=== PATIENT | male | born 1985 | race African-American/Black ===

== ENCOUNTER 2017-03-31 22:00 | Inpatient (IN) | payer OTHER ==
[~2017-03-31] VITALS: Ht 180.3 cm; Wt 77.1 kg
--- NOTE | ~2017-03-31 | HP ---
Unit #: [id number] #: [id number] Patient: BECCA CARMONA [id number] [place] [address] [id number] I MR#: [id number] NAME: BECCA CARMONA ROOM: P186 Age: 31 Sex: M Admission Date: 04/01/2017 : 1985 Attending Physician: Fadi Faustin M.D. Admitting Physician: Fadi Faustin M.D. Primary Care Physician: Primary Care Physician No HISTORY AND PHYSICAL HISTORY OF PRESENT ILLNESS Becca is a 31 year old male admitted on 04/01/2017 for detox from heroin and Percocet. PAST MEDICAL HISTORY 1. Seizure disorder with his last seizure 2 years ago. 2. Asthma. PAST SURGICAL HISTORY None. ALLERGIES Penicillin. SOCIAL HISTORY He smokes 5 cigarettes daily. No alcohol use. Does report daily use of IV heroin and Percocet. He is currently single and living with his mother. FAMILY HISTORY Noncontributory. REVIEW OF SYSTEMS CONSTITUTIONAL: No fever or chills. HEENT: Denies any sore throat, ear pain or runny nose. CARDIOVASCULAR: Denies chest pain, irregular heart rhythm or palpitations. CHEST: Denies shortness of breath or cough. No hemoptysis. GASTROINTESTINAL: Denies nausea, vomiting, diarrhea or chronic constipation. ENDOCRINE: Denies history of increased thirst or urination. No recent significant weight loss or gain. GENITOURINARY: Denies dysuria, frequency, or hematuria. SKIN: Denies any rashes. HEMATOLOGIC: Denies history of increased bleeding or bruising. MUSCULOSKELETAL: Denies any hot, swollen joints. No generalized muscle pain. NEUROLOGIC: Denies problems with vision or speech. No frequent, severe headaches. No numbness, tingling or weakness in any extremities. Denies loss of bladder or bowel control. CURRENT MEDICATIONS 1. Depakote. 2. Ventolin. Unit #: [id number] #: [id number] Patient: BECCA CARMONA PHYSICAL EXAMINATION GENERAL: Alert, oriented, in no acute distress. VITAL SIGNS: Blood pressure 137/81, heart rate 58, respirations 16, temperature 98.5. HEIGHT: 5 feet 11. WEIGHT: 170 pounds. SKIN: Warm and dry without rash or lesion. HEENT: Normocephalic. TMs not viewed. Oral and nasal passages clear. Conjunctivae clear. PERRLA. EOMs intact. NECK: Supple without lymphadenopathy or thyromegaly. HEART: Regular rate and rhythm without murmur. LUNGS: Clear. ABDOMEN: Soft, nontender, without masses or hepatosplenomegaly. : Not done. EXTREMITIES: No evidence of cyanosis, clubbing or edema. Moves all without focal deficit. NEUROLOGICAL: Grossly within normal limits. Cranial Nerves: II: Visual aparicio are intact. III, IV AND : Extraocular movements are intact. Pupils are equal, round and reactive to light. V: Facial sensation is grossly normal. VII: Facial movements and expression are normal. VIII: Auditory acuity grossly intact. IX, X: Uvula is midline. Phonation is normal. XI: Patient shrugs shoulders and turns head normally. XII: Tongue protrudes in the midline. Sensory and Motor Function: Sensory and motor sensation is grossly normal. Motor: moves all extremities well. Coordination: Gait is normal. Deep Tendon Reflexes: Intact. IMPRESSION 1. Psychiatric admission. 2. Seizure disorder, last seizure 2 years ago. 3. Asthma. RECOMMENDATIONS PSYCHIATRIC: Per psychiatrist. MEDICAL: No contraindication to participate in facility's activities. MEDICAL PROGNOSIS Good. MEDICAL CONDITION Stable. Dictated by... Molly Nix/kaylee TD: 04/01/2017 22:56 JOB #: [id number] Unit #: [id number] #: [id number] Patient: BECCA CARMONA HISTORY AND PHYSICAL Page 1 of 1 X AMY CRUZ APRN X HISTORY AND PHYSICAL
--- NOTE | ~2017-03-31 | PN ---
Unit #: [id number] #: [id number] Patient: BECCA CARMONA [id number] [facility] [address] [place] [address] [id number] I MR#: [id number] NAME: BECCA CARMONA ROOM: 86 Age: 31 Sex: M Admission Date: 04/01/2017 : 1985 Attending Physician: Fadi Faustin M.D. Admitting Physician: Fadi Faustin M.D. Primary Care Physician: Primary Care Physician Gwen AYALA PROGRESS NOTES DATE OF SERVICE 04/03/2017 DISCUSSION Mr. Carmona has [id number] detox symptoms today. His Depakote had been administered in error due to a critical care transport nurse error, and his Depakote dose was made up last night with my permission. His mood remains irritable with a congruent affect. He is alert and fully oriented with no psychosis. ASSESSMENT 1. Opioid dependence 2. History of seizure disorder. PLAN We will check a Depakote level in the morning as well as a CMP and a UDS. The patient may be ready for discharge based on his recent improvement. Dictated by... Zan Ruggiero/debbie TD: 04/05/2017 00:35 JOB #: [id number] JAMIE PROGRESS NOTES Page 1 of 1 X Fadi Faustin MD PROGRESS NOTE
--- NOTE | ~2017-03-31 | PA ---
Unit #: [id number] #: [id number] Patient: BECCA CARMONA [id number] [facility] [address] [place] [address] [id number] I MR#: [id number] NAME: BECCA CARMONA ROOM: 86 Age: 31 Sex: M Admission Date: 04/01/2017 : 1985 Date of Assessment: Attending Physician: Fadi Faustin M.D. Admitting Physician: Fadi Faustin M.D. Primary Care Physician: Primary Care Physician No PSYCHIATRIC ASSESSMENT DATE OF ASSESSMENT 04/01/2017. INFORMANTS The patient, reliable; OLOP, reliable. CHIEF COMPLAINT "Depression and SI". HISTORY OF PRESENT ILLNESS Mr. Carmona is a 31-year-old man with a history of opioid dependence and depression with bipolar disorder. He reported suicidal ideation, fearing he would harm himself, and had relapsed into heroin use. He was unable to contract for safety, and was admitted for treatment and stabilization. PAST PSYCHIATRIC HISTORY As noted, the patient has a history of bipolar disorder, and has been taking Depakote 1500 mg daily with good benefit. FAMILY PSYCHIATRIC HISTORY None reported. SOCIAL HISTORY The patient denied a history of childhood abuse or neglect. He is a single heterosexual man, who is currently has a friend staying with him for housing support. He broke up with his girlfriend recently, and has significant financial stress for not being employed. PAST MEDICAL HISTORY Significant for seizure disorder. MEDICATIONS Please see MAR allergies. ALLERGIES Penicillin. SUBSTANCE ABUSE HISTORY The patient has a history of heroin abuse and relapse x1 prior to admission. MENTAL STATUS EXAMINATION Mr. Carmona presented as a mildly disheveled man, who appeared his stated Unit #: [id number] #: [id number] Patient: BECCA CARMONA age. His speech was terse, but easily understood. Musculoskeletal examination was calm. His mood was irritable with a congruent affect. He was alert and fully oriented. Memory and concentration were fair. Thought processes were goal directed with no active psychosis. He was equivocal about suicidal ideation, intent, or plan. Insight and judgment, fair. Fund of knowledge and abstraction, fair. ASSETS AND LIABILITIES The patient knows local resources and presents voluntarily for treatment. Liabilities include recent breakup with girlfriend and recent heroin relapse. ADMITTING DIAGNOSES AXIS I: Bipolar disorder, depressed; opioid dependence. AXIS II: No diagnosis. AXIS III: History of seizures. AXIS IV: AXIS V: PSYCHIATRIC PLAN The patient was admitted and placed on his suicide precautions, and Depakote ER was restarted. We will monitor him for response, and add an antidepressant or other medications as clinically appropriate. He should not experience detox symptoms after just a brief relapse. TREATMENT GOALS Resolution of SI, improvement in insight, and improvement in coping skills. DISCHARGE PLANNING Follow up with [facility]. ESTIMATED LENGTH OF STAY 5 days. Dictated by... Fadi Faustin M.D. PAVEL/kimberly TD: 04/03/2017 11:27 JOB #: [id number] PSYCHIATRIC ASSESSMENT Page 1 of 1 X Fadi Faustin MD X PSYCHIATRIC ASSESSMENT
[2017-04-01 12:30] LABS: BASOPHIL# 0.1 X10e3 (0-0.3); BASOPHIL% 0.6 % (0-2.5); EOSINOPHIL# 0.5 X10e3 (0-0.7); EOSINOPHIL% 6.4 % (0.0-7.0); HEMATOCRIT 47.7 % (38.0-50.0); HEMOGLOBIN 15.5 gm/dL (13.0-16.0); LYMPHOCYTE# 2.1 X10e3 (1.0-3.5); LYMPHOCYTE% 25.2 % (17.0-45.0); MEAN CELL VOLUME 95.1 FL (83-96); MEAN CORPUSCULAR HGB CONC 32.6 g/dL (30-36); MONOCYTE# 0.7 X10e3 (0-1.0); NEUTROPHIL% 59.8 % (40-75); PLATELET COUNT 226 X10e3 (140-420); RED BLOOD COUNT 5.01 X10e (3.90-5.60); RED CELL DISTRIBUTION WIDTH 13.7 % (11.0-15.5); WHITE BLOOD COUNT 8.4 X10e3 (4.0-10.5)
[2017-04-01 12:36] LABS: DIFF IND NO
[2017-04-01 13:01] LABS: ALBUMIN SERUM 3.8 g/dL (3.5-5.0); BILIRUBIN,TOTAL 1.1 mg/dL (0.2-2.0); BUN/CREATININE RATIO 14.54; CALCIUM SERUM 9.3 mg/dL (8.4-10.2); CREATININE SERUM 1.1 mg/dL (0.6-1.4); GLOM FILT RATE Estimated 103.9 mL/min (>60); POTASSIUM 4.2 mmol/L (3.5-5.1); PROTEIN TOTAL SERUM 6.5 g/dL (6.0-8.3)
== END 2017-04-03 19:10 | disposition left against medical advice (07) | DRG 885 ==
LOC: P1E 04-01 00:22
PROVIDERS: Psychiatry & Neurology Psychiatry
PROC: HZ2ZZZZ Detoxification Services for Substance Abuse Treatment (ICD-10-PCS; principal; 2017-04-01)
DX: F31.9 Bipolar disorder, unspecified (principal); F11.20 Opioid dependence, uncomplicated; G40.909 Epilepsy, unspecified, not intractable, without status epilepticus; J45.909 Unspecified asthma, uncomplicated; Z88.0 Allergy status to penicillin; F17.210 Nicotine dependence, cigarettes, uncomplicated
CPT/HCPCS: 80053; 80164; 85025